=== PATIENT | female | born 1955 | race Caucasian/White ===

== ENCOUNTER → 2016-07-01 | Outpatient (CLI) | payer OTHER ==
[~2016-07-01] MED LIST: CALC1CAP36 PO; CALCTAB7 PO; HYDR-5688 PO; METH10TA6 PO; SYN125 PO; THY30 PO
== END | disposition home or self-care (01) ==
LOC: C.LAB 07:06
PROVIDERS: ATTEND Internal Medicine Endocrinology, Diabetes & Metabolism
DX: E05.00 Thyrotoxicosis with diffuse goiter without thyrotoxic crisis or storm (principal); E89.0 Postprocedural hypothyroidism

== ENCOUNTER → 2016-10-28 | Outpatient (CLI) | payer OTHER | END | disposition home or self-care (01) | LOC: C.LAB 06:44 | PROVIDERS: ATTEND Internal Medicine Endocrinology, Diabetes & Metabolism | DX: E05.00 Thyrotoxicosis with diffuse goiter without thyrotoxic crisis or storm (principal) ==

== ENCOUNTER 2016-11-02 15:20 | Emergency (ER) | payer OTHER ==
[~2016-11-02] VITALS: Ht 157.5 cm; Wt 53.6 kg
[~2016-11-02 15:20] MED LIST changes: -THY30 PO
[2016-11-02 15:34] VITALS: TEMP 36.8; Ht 157.5 cm; Wt 53.6 kg
[2016-11-02] MEDS ORDERED: THY30 PO (15:51)
--- NOTE | 2016-11-02 16:24 | DIAGNOSTIC IMAGING REPORT ---
LEFT FOOT MIN 3 VIEWS ROUTINE CLINICAL HISTORY: left foot pain, base of 2, 3 digits COMPARISON: None. DISCUSSION: The bones and joint spaces appear intact. There is no evidence of fracture, dislocation or bony disease. Mild degenerative change. Bunion deformity distal first metatarsal. IMPRESSION: No acute bony abnormality. Electronically signed by: Luc Cain M.D. 11/02/2016 4:22 PM Dictated Date/Time: 11/02/2016 4:22 PM
--- NOTE | 2016-11-02 16:35 | EMERGENCY ROOM VISIT NOTE ---
ED Visit Note First contact with patient: 15:38 CHIEF COMPLAINT: "My left foot is killing me" HISTORY OF PRESENT ILLNESS: This 60-year-old female patient presents to the emergency department ambulatory complaining of one and a half months history of pain in the left foot at rest and worse with weight bearing. The patient denies injury, but states the pain is getting worse. 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 She denies prior injury or fracture to this foot or ankle. Patient denies swelling , and states she tried taking one Tylenol at one point for the discomfort, without relief. Patient states she does not want to take pain medication in the discomfort, so she does not overdo it. The patient rates the pain as sharp and burning and 8/10 when walking, and throbbing and 3/10 at rest. Rest makes the pain better, movement and weightbearing makes it worse. The patient is able to walk. No numbness or weakness. No ankle pain. There are no lacerations of the foot. The patient is able to move all of their toes and their ankle without pain. Patient denies fever, chills, nausea, vomiting, redness, swelling , other associated symptoms. REVIEW OF SYSTEMS: GENERAL: A 6 system review of systems was completed with positives and pertinent negatives in the HPI. ALLERGIES: Dilaudid, codeine, IV contrast. MEDICATIONS: [place] Thyroid PMH: Hypothyroidism SOCIAL HISTORY: Lives locally with her family. She denies tobacco and drug use , but does admit to occasional wine during holidays. PHYSICAL EXAM: Vital Signs: Reviewed Nurse's notes, vital signs stable. GENERAL : 60-year-old female, in no acute distress, but appears in pain, well-developed , well-nourished. MUSCULOSKELATAL: There is no visual deformity of the left foot. There is no erythema or ecchymosis. There is no warmth. There is tenderness and swelling over the distal aspect of the second and third digits of the left foot. There is no tenderness over the lateral or medial malleolus. No tenderness of the tib/fib. The range of motion of the left foot, ankle, toes is not limited. There is no tenderness over the plantar fascia. The skin is intact and there are no lacerations or puncture wounds. Dorsalis pedis pulse 2+. Capillary refill less than 2 seconds. EMERGENCY DEPARTMENT COURSE: I examined the patient. Patient refuses pain medication at this time. An X-ray of the left foot was reviewed by myself and radiologist and reveals DISCUSSION: The bones and joint spaces appear intact. There is no evidence of fracture, dislocation or bony disease. Mild degenerative change. Bunion deformity distal first metatarsal. IMPRESSION: No acute bony abnormality. The patient was placed in a post op shoe but declines crutches. The patient was discharged home in good condition. DIAGNOSIS: Foot pain DIFFERENTIAL DIAGNOSIS: Fracture of the phalanges, metatarsal fracture, contusion of bone, ligamentous injury including sprain and strain, soft tissue contusion. TREATMENT: Ice and elevation for 24-48 hrs. Ibuprofen, 600mg and Tylenol 1000 mg every 6 hours for the pain. Avoid weight bearing and use post-op shoe until the pain subsides and you can walk without a limp. Follow up with family doctor or orthopedic surgeon in 3-7 days. Current/Historical Medications Scheduled Thyroid ([place] Thyroid), 75 MG PO DAILY Allergies Coded Allergies: Iodinated Diagnostic Agents (Unverified Allergy, Unknown, SNEEZING, 11/02/16 ) Codeine (Unverified Adverse Reaction, Intermediate, HEADACHE, SHAKINESS, N /V, 11/02/16) Hydromorphone (Unverified Adverse Reaction, Unknown, n/v, 11/02/16) Vital Signs Date Time Temp Pulse Resp B/P (MAP) Pulse Ox O2 Delivery O2 Flow Rate FiO2 11/02/16 15:34 36.8 73 16 106/72 100 Room Air Departure Information Impression Primary Impression: Foot pain Dispostion Home / Self-Care Condition GOOD Referrals Leatha Shaffer DO (PCP) Patient Instructions [facility] Additional Instructions ORTHOPEDIC INSTRUCTIONS: Ibuprofen(Motrin, Advil) may be used for fever or pain. Use 600mg every six hours as needed. Take with food. Avoid using more than 2400mg in a 24 hour period. Do not use 2400mg per day for more than three consecutive days without physician direction. Prolonged inappropriate use can lead to stomach upset or ulcers. (AND/OR) Acetaminophen(Tylenol) may be used for fever or pain. Use 1000mg every six hours as needed. Avoid using more than 4000mg in a 24 hour period. Ice compresses for 20 minutes at a time four times daily for 2-3 days. Please wear the postop shoe until follow-up with your family doctor or orthopedic surgeon. Rest and elevate your injury. Do not get the post-op shoe wet. If your splint feels excessively tight, you have worsening pain, develop numbness or tingling, or your digits appear blue, loosen the shoe. If your symptoms are not quickly relieved return to the ER for re-evaluation. Return to the ER immediately for any numbness, tingling, severe pain, extreme swelling in the extremity or as needed. Call [facility], [phone], in 2-3 days to arrange follow up for your injury. Follow-up with your primary care physician in 2 to 3 days for a recheck of your current condition. Problem Qualifiers Primary Impression: Foot pain Laterality: left Qualified Codes: M79.672 - Pain in left foot
[2016-11-02 16:48] VITALS: BP 98/69; PULSE 76; O2SAT 98
== END 2016-11-02 16:50 | disposition home or self-care (01) ==
LOC: C.EDB 15:22 → C.EDD 16:50
DX: M79.672 Pain in left foot (principal); E03.9 Hypothyroidism, unspecified; Z79.899 Other long term (current) drug therapy; Z88.5 Allergy status to narcotic agent; Z88.8 Allergy status to other drugs, medicaments and biological substances; Z91.041 Radiographic dye allergy status

== ENCOUNTER 2017-07-17 12:10 | Emergency (ER) | payer OTHER ==
[~2017-07-17] VITALS: Ht 157.5 cm; Wt 53.1 kg
[~2017-07-17 12:10] MED LIST changes: -CALC1CAP36 PO; -CALCTAB7 PO; -HYDR-5688 PO; -METH10TA6 PO; -SYN125 PO; +THY30 PO
[2017-07-17 12:22] VITALS: TEMP 36.5; Ht 157.5 cm; Wt 53.1 kg
[2017-07-17] MEDS ORDERED: SODIUM CHLORIDE 0.9% 500ML 500 ML IV STA ×2 (12:39→14:49)
[2017-07-17] MEDS ORDERED: METOCLOPRAMIDE HCL INJ 5 MG/ML 2 ML VIAL IV STA (12:39)
--- NOTE | 2017-07-17 12:43 | EMERGENCY ROOM VISIT NOTE ---
History Report prepared by Eduard: Jose Welch Under the Supervision of: Dr. Moy Deleon M.D. First contact with patient: 12:31 Chief Complaint: FLANK PAIN Stated Complaint: PAIN IN LEFT SIDE History of Present Illness The patient is a 61 year old female who presents to the Emergency Room with complaints of persistent left-sided abdominal pain that started a week ago. She says that her abdomen is also distended. The patient notes that she often has bowel movement issues, but currently her stools are all diarrhea. She adds that she has been nauseous. The patient notes an extensive surgical history, including a cholecystectomy, appendectomy, hysterectomy, and hernia. Source of History: patient Onset: A week ago Position: abdomen (left) Timing: other (persistent) Associated Symptoms: + nausea, + diarrhea Note: Associated symptoms: Abdominal distension. Review of Systems See HPI for pertinent positives & negatives. A total of 10 systems reviewed and were otherwise negative. Past Medical & Surgical Medical Problems: (1) Bronchitis (2) Graves disease (3) No chronic diseases present (4) PNA (pneumonia) Surgical Problems: (1) History of hysterectomy (2) History of thyroidectomy (3) Hx of appendectomy (4) Hx of thyroidectomy Family History Cancer Gallbladder disease Kidney disease Social History Smoking Status: Current Every Day Smoker Alcohol Use: none Housing Status: lives with roommate Occupation Status: employed Current/Historical Medications Scheduled Thyroid ([place] Thyroid), 75 MG PO DAILY Allergies Coded Allergies: Iodinated Diagnostic Agents (Unverified Allergy, Unknown, SNEEZING, ) Codeine (Unverified Adverse Reaction, Intermediate, HEADACHE, SHAKINESS, N /V, 07/17/17) Hydromorphone (Unverified Adverse Reaction, Unknown, n/v, 07/17/17) Physical Exam Vital Signs Date Time Temp Pulse Resp B/P (MAP) Pulse Ox O2 Delivery O2 Flow Rate FiO2 07/17/17 15:16 68 16 98/57 95 Room Air 07/17/17 14:26 60 18 82/53 98 Room Air 07/17/17 12:22 36.5 76 16 97/67 97 Room Air Physical Exam GENERAL: Patient is a healthy-appearing well-nourished 61 year old female. HEAD: Normocephalic atraumatic EYES: Ocular movements intact pupils equal and react to light OROPHARYNX mucous membranes are moist no exudates present no erythema or edema present NECK: Supple no nuchal rigidity CHEST: Good equal expansion LUNGS: Clear and equal to auscultation CARDIAC: Normal S1 and S2 ABDOMEN: Abdomen is distended and tender especially in the left upper quadrant. BACK: No CVA tenderness EXTREMITIES: No pain upon palpation normal muscle strength in all groups no clubbing cyanosis or edema NEURO: Patient is following commands and answering questions appropriately. Alert and oriented x3 Cranial Nerves 2-12 grossly intact Medical Decision & Procedures ER Provider Diagnostic Interpretation: ABDOMEN AND PELVIS CT WITH ORAL CONTRAST CT DOSE: 244.02 mGy.cm HISTORY: Pt c/o left sided abd pain TECHNIQUE: Multiaxial CT images of the abdomen and pelvis were performed following the use of oral contrast. A dose lowering technique was utilized adhering to the principles of ALARA. COMPARISON STUDY: None. FINDINGS: Linear densities at the right lung base consistent with subsegmental atelectasis. No fractures within the visualized osseous structures. Cholecystectomy. The unenhanced liver, spleen, adrenal glands, and kidneys are unremarkable. No renal or ureteral stones. No hydronephrosis. No retroperitoneal lymphadenopathy. Normal caliber common bile duct. There is a 1.3 cm hypodense lesion within the pancreatic head. This favors a cystic lesion. The bladder is unremarkable. The uterus is surgically absent. Colonic diverticulosis. The appendix is not identified and likely surgically absent. No bowel wall thickening or obstruction. IMPRESSION: 1. No bowel wall thickening or obstruction. 2. Colonic diverticulosis. 3. The appendix is likely surgically absent. 4. No renal stones or hydronephrosis. 5. A 1.3 cm hypodense lesion within the pancreatic head. This favors a cystic neoplasm such as a side branch intraductal papillary mucinous neoplasm or serous cystadenoma. Follow-up nonemergent GI consultation and follow-up nonemergent dedicated pancreatic MRI is recommended for confirmation. Electronically signed by: Willie Barragan M.D. 07/17/2017 3:20 PM Dictated Date/Time: 07/17/2017 3:13 PM Laboratory Results 07/17/17 12:45 Red Blood Count 5.19, Mean Corpuscular Volume 94.2, Mean Corpuscular Hemoglobin 33.5, Mean Corpuscular Hemoglobin Concent 35.6, Mean Platelet Volume 9.8, Neutrophils (%) (Auto) 42.3, Lymphocytes (%) (Auto) 48.6, Monocytes (%) (Auto) 7.5, Eosinophils (%) (Auto) 0.8, Basophils (%) (Auto) 0.7, Neutrophils # (Auto) 2.99, Lymphocytes # (Auto) 3.44, Monocytes # (Auto) 0.53, Eosinophils # (Auto) 0.06, Basophils # (Auto) 0.05 07/17/17 12:45 Test 07/17/17 12:45 White Blood Count 7.08 K/uL (4.8-10.8) Red Blood Count 5.19 M/uL (4.2-5.4) Hemoglobin 17.4 g/dL (12.0-16.0) Hematocrit 48.9 % (37-47) Mean Corpuscular Volume 94.2 fL (80-100) Mean Corpuscular Hemoglobin 33.5 pg (25-34) Mean Corpuscular Hemoglobin Concent 35.6 g/dl (32-36) Platelet Count 249 K/uL (130-400) Mean Platelet Volume 9.8 fL (7.4-10.4) Neutrophils (%) (Auto) 42.3 % Lymphocytes (%) (Auto) 48.6 % Monocytes (%) (Auto) 7.5 % Eosinophils (%) (Auto) 0.8 % Basophils (%) (Auto) 0.7 % Neutrophils # (Auto) 2.99 K/uL (1.4-6.5) Lymphocytes # (Auto) 3.44 K/uL (1.2-3.4) Monocytes # (Auto) 0.53 K/uL (0.11-0.59) Eosinophils # (Auto) 0.06 K/uL (0-0.5) Basophils # (Auto) 0.05 K/uL (0-0.2) RDW Standard Deviation 44.8 fL (36.4-46.3) RDW Coefficient of Variation 12.9 % (11.5-14.5) Immature Granulocyte % (Auto) 0.1 % Immature Granulocyte # (Auto) 0.01 K/uL (0.00-0.02) Urine Color YELLOW Urine Appearance CLEAR (CLEAR) Urine pH 5.5 (4.5-7.5) Urine Specific [place] 1.018 (1.000-1.030) Urine Protein NEG (NEG) Urine Glucose (UA) NEG (NEG) Urine Ketones TRACE (NEG) Urine Occult Blood NEG (NEG) Urine Nitrite NEG (NEG) Urine Bilirubin NEG (NEG) Urine Urobilinogen NEG (NEG) Urine Leukocyte Esterase NEG (NEG) Anion Gap 7.0 mmol/L (3-11) Est Creatinine Clear Calc Drug Dose 70.5 ml/min Estimated GFR () 111.0 Estimated GFR (Non- 95.7 BUN/Creatinine Ratio 17.8 (10-20) Calcium Level 9.0 mg/dl (8.5-10.1) Total Bilirubin 0.4 mg/dl (0.2-1) Direct Bilirubin mg/dl (0-0.2) Aspartate Amino Transf (AST/SGOT) 21 U/L (15-37) Alanine Aminotransferase (ALT/SGPT) 35 U/L (12-78) Alkaline Phosphatase 85 U/L (45-117) Total Protein 6.9 gm/dl (6.4-8.2) Albumin 3.4 gm/dl (3.4-5.0) Lipase 562 U/L (73-393) Chemistry Specimen Hemolysis Labs reviewed by ED physician. Medications Administered Medications (Trade) Dose Ordered Sig/Nicole Route Start Time Stop Time Status Last Admin Dose Admin Sodium Chloride 500 ml @ 999 mls/hr Q31M STAT IV 07/17/17 12:39 07/17/17 13:09 DC 07/17/17 12:39 999 MLS/HR Metoclopramide HCl (Reglan Inj) 10 mg NOW STAT IV 07/17/17 12:39 07/17/17 12:41 DC 07/17/17 12:58 10 MG Sodium Chloride 500 ml @ 999 mls/hr Q31M STAT IV 07/17/17 14:49 07/17/17 15:19 DC 07/17/17 15:16 999 MLS/HR ED Course 1232: Past medical records reviewed. The patient was evaluated in room B7. A complete history and physical examination was performed. 1239: Ordered Reglan Inj 10 mg IV, NSS 500 ml @ 999 mls/hr IV. Medical Decision Differential diagnosis: Etiologies such as appendicitis, diverticulitis, PUD, biliary pathology, UTI, pancreatitis, obstruction, mesenteric ischemia, aortic pathology, infections, inflammatory bowel disease, renal colic, as well as others were entertained. This is a 61-year-old female who presents emergency department waning of left- sided abdominal pain. Based on my Findings he was sent for a CAT scan of the abdomen pelvis however is a normal CBC profile liver profile. Her lipase is slightly elevated however she is nontender on examination I feel she can safely discharged. CAT scan is concerning for pancreatic and stressed close follow-up with primary care physician as well as gastroenterology. Patient was in agreement with the treatment plan Medication Reconcilliation Current Medication List: was personally reviewed by me Blood Pressure Screening Patient's blood pressure: Normal blood pressure Impression Primary Impression: Left flank pain Scribe Attestation The scribe's documentation has been prepared under my direction and personally reviewed by me in its entirety. I confirm that the note above accurately reflects all work, treatment, procedures, and medical decision making performed by me. Departure Information Referrals Leatha Shaffer DO (PCP) Patient Instructions My [facility]
[2017-07-17 13:07] LABS: BASO % 0.7 %; BASO ABS # 0.05 K/uL (0-0.2); EOS % 0.8 %; EOS ABS # 0.06 K/uL (0-0.5); HEMATOCRIT 48.9 % (37-47); HEMOGLOBIN 17.4 g/dL (12.0-16.0); IG# 0.01 K/uL (0.00-0.02); LYMPH % 48.6 %; LYMPH ABS # 3.44 K/uL (1.2-3.4); MEAN CELL VOLUME 94.2 fL (80-100); MEAN CORPUSCULAR HEMOGLOBIN 33.5 pg (25-34); MEAN CORPUSCULAR HGB CONC 35.6 g/dl (32-36); MEAN PLATELET VOLUME 9.8 fL (7.4-10.4); MONO % 7.5 %; MONO ABS # 0.53 K/uL (0.11-0.59); NEUT % 42.3 %; NEUT ABS # 2.99 K/uL (1.4-6.5); PLATELET COUNT 249 K/uL (130-400); RED CELL DISTRIBUTION WIDTH CV 12.9 % (11.5-14.5); RED CELL DISTRIBUTION WIDTH SD 44.8 fL (36.4-46.3); WHITE BLOOD COUNT 7.08 K/uL (4.8-10.8)
[2017-07-17 13:19] LABS: ALBUMIN 3.4 gm/dl (3.4-5.0); CREATININE 0.68 mg/dl (0.60-1.20); POTASSIUM 4.1 mmol/L (3.5-5.1); TOTAL PROTEIN 6.9 gm/dl (6.4-8.2)
[2017-07-17 15:16] VITALS: BP 98/57; PULSE 68; O2SAT 95
--- NOTE | 2017-07-17 15:22 | DIAGNOSTIC IMAGING REPORT ---
ABDOMEN AND PELVIS CT WITH ORAL CONTRAST CT DOSE: 244.02 mGy.cm HISTORY: Pt c/o left sided abd pain TECHNIQUE: Multiaxial CT images of the abdomen and pelvis were performed following the use of oral contrast. A dose lowering technique was utilized adhering to the principles of ALARA. COMPARISON STUDY: None. FINDINGS: Linear densities at the right lung base consistent with subsegmental atelectasis. No fractures within the visualized osseous structures. Cholecystectomy. The unenhanced liver, spleen, adrenal glands, and kidneys are unremarkable. No renal or ureteral stones. No hydronephrosis. No retroperitoneal lymphadenopathy. Normal caliber common bile duct. There is a 1.3 cm hypodense lesion within the pancreatic head. This favors a cystic lesion. The bladder is unremarkable. The uterus is surgically absent. Colonic diverticulosis. The appendix is not identified and likely surgically absent. No bowel wall thickening or obstruction. IMPRESSION: 1. No bowel wall thickening or obstruction. 2. Colonic diverticulosis. 3. The appendix is likely surgically absent. 4. No renal stones or hydronephrosis. 5. A 1.3 cm hypodense lesion within the pancreatic head. This favors a cystic neoplasm such as a side branch intraductal papillary mucinous neoplasm or serous cystadenoma. Follow-up nonemergent GI consultation and follow-up nonemergent dedicated pancreatic MRI is recommended for confirmation. Electronically signed by: Willie Barragan M.D. 07/17/2017 3:20 PM Dictated Date/Time: 07/17/2017 3:13 PM
[2017-07-21] MEDS ORDERED: VNTHFA/IN INH (15:26)
== END 2017-07-17 15:42 | disposition home or self-care (01) ==
LOC: C.EDB 12:11
DX: R10.9 Unspecified abdominal pain (principal); R19.7 Diarrhea, unspecified; E89.0 Postprocedural hypothyroidism; F17.200 Nicotine dependence, unspecified, uncomplicated; Z90.710 Acquired absence of both cervix and uterus; Z90.49 Acquired absence of other specified parts of digestive tract; Z90.89 Acquired absence of other organs; Z87.01 Personal history of pneumonia (recurrent); E05.00 Thyrotoxicosis with diffuse goiter without thyrotoxic crisis or storm

== ENCOUNTER → 2017-07-19 | Outpatient (CLI) | payer OTHER ==
[~2017-07-19] MED LIST changes: +VNTHFA/IN INH
[2017-07-19 17:27] LABS: HEMATOCRIT 44.1 % (37-47); HEMOGLOBIN 15.2 g/dL (12.0-16.0); MEAN CELL VOLUME 95.5 fL (80-100); MEAN CORPUSCULAR HEMOGLOBIN 32.9 pg (25-34); MEAN CORPUSCULAR HGB CONC 34.5 g/dl (32-36); MEAN PLATELET VOLUME 10.2 fL (7.4-10.4); PLATELET COUNT 248 K/uL (130-400); RED CELL DISTRIBUTION WIDTH CV 13.1 % (11.5-14.5); RED CELL DISTRIBUTION WIDTH SD 45.4 fL (36.4-46.3); WHITE BLOOD COUNT 7.01 K/uL (4.8-10.8)
[2017-07-19 17:53] LABS: BASO % 0.4 %; BASO ABS # 0.03 K/uL (0-0.2); EOS % 1.3 %; EOS ABS # 0.09 K/uL (0-0.5); IG# 0.01 K/uL (0.00-0.02); LYMPH % 53.5 %; LYMPH ABS # 3.75 K/uL (1.2-3.4); MONO % 7.6 %; MONO ABS # 0.53 K/uL (0.11-0.59); NEUT % 37.1 %
[2017-07-19 18:02] LABS: ALBUMIN 3.3 gm/dl (3.4-5.0); ALT/SGPT 37 U/L (12-78); AST/SGOT 18 U/L (15-37); BLOOD UREA NITROGEN 18 mg/dl (7-18); CALCIUM 8.8 mg/dl (8.5-10.1); CARBON DIOXIDE 26 mmol/L (21-32); CREATININE 0.54 mg/dl (0.60-1.20); GLUCOSE 91 mg/dl (70-99); LIPASE 182 U/L (73-393); POTASSIUM 3.8 mmol/L (3.5-5.1); SODIUM 141 mmol/L (136-145)
[2017-07-19 18:04] LABS: ALKALINE PHOSPHATASE 88 U/L (45-117); TOTAL PROTEIN 6.5 gm/dl (6.4-8.2)
== END | disposition home or self-care (01) ==
LOC: C.LAB 16:24
PROVIDERS: ATTEND Registered Nurse
DX: K86.2 Cyst of pancreas (principal)

== ENCOUNTER 2017-07-26 12:37 | Emergency (ER) | payer OTHER ==
[~2017-07-26] VITALS: Ht 157.5 cm; Wt 52.0 kg
[~2017-07-26 12:37] MED LIST changes: -GADAVIST IV PRN; -PRED50TA PO
[2017-07-26 12:43] VITALS: TEMP 36.7; Ht 157.5 cm; Wt 52.0 kg
[2017-07-26 13:15] VITALS: O2SAT 97
--- NOTE | 2017-07-26 13:32 | EMERGENCY ROOM VISIT NOTE ---
History Report prepared by Eduard: Adri Owusu Under the Supervision of: Dr. Erick López M.D. First contact with patient: 12:56 Chief Complaint: ALLERGIC REACTION Stated Complaint: HIVES Nursing Triage Summary: pt to the ED with c/o hives from MRI contrast to arms and chest and bilateral hands turned purple has had previous reaction to contrast and was pre medicated no resp complaints happened just prior to arrival to the ED History of Present Illness The patient is a 61 year old female who presents to the Emergency Room with complaints of an episode of an allergic reaction occurring [employer]. The patient had an outpatient MRI done this afternoon for a cyst on her pancreas. She reports that she had Solu-Medrol 12 hours before the study and then again 4 hours before the study. She was given contrast just prior to the MRI. The patient states that she developed a rash on her chest and bilateral arms and hands. She reports hives and states that she feels very itchy. She rates her pain as a 7/ 10 in severity. She denies any breathing issues or respiratory complaints. She states that her symptoms have already started to improve on their own. Source of History: patient Onset: [employer] INST[employer]ER Position: other (global) Symptom Intensity: 7/10 Quality: other (itchy) Timing: other (episode) Modifying Factors (Worsening): other (contrast dye) Modifying Factors (Relieving): other (time) Associated Symptoms: + rash, No SOB Review of Systems See HPI for pertinent positives & negatives. A total of 10 systems reviewed and were otherwise negative. Past Medical & Surgical Medical Problems: (1) Bronchitis (2) Graves disease (3) No chronic diseases present (4) PNA (pneumonia) Surgical Problems: (1) History of hysterectomy (2) History of thyroidectomy (3) Hx of appendectomy (4) Hx of thyroidectomy Family History Cancer Gallbladder disease Kidney disease Social History Smoking Status: Current Every Day Smoker Alcohol Use: none Housing Status: lives with roommate Occupation Status: employed Current/Historical Medications Scheduled Prednisone (Prednisone), 50 MG PO DAILY Thyroid ([place] Thyroid), 75 MG PO QAM Scheduled PRN Albuterol Hfa (Ventolin Hfa), 2-4 PUFFS INH Q6H PRN for SOB/Wheezing Allergies Coded Allergies: Gadobutrol (Unverified Allergy, Mild, RASH, 07/26/17) Iodinated Diagnostic Agents (Unverified Allergy, Unknown, SNEEZING, ) Codeine (Unverified Adverse Reaction, Intermediate, HEADACHE, SHAKINESS, N /V, 07/26/17) Hydromorphone (Unverified Adverse Reaction, Unknown, n/v, 07/26/17) Physical Exam Vital Signs Date Time Temp Pulse Resp B/P (MAP) Pulse Ox O2 Delivery O2 Flow Rate FiO2 07/26/17 14:10 83 18 111/68 96 Room Air 07/26/17 13:19 79 07/26/17 13:15 97 Room Air 07/26/17 12:43 36.7 84 18 106/73 97 Physical Exam GENERAL: Patient is in no acute distress. HEENT: No acute trauma, normocephalic atraumatic, mucous membranes moist, no nasal congestion, no scleral icterus. No uvular edema. NECK: No stridor, no adenopathy, no meningismus, trachea is midline. LUNGS: Clear to auscultation bilaterally, no wheeze, no rhonchi, breath sounds equal. HEART: Without murmurs gallops or rubs, regular rate and rhythm. ABDOMEN: Soft, nontender, bowel sounds positive, no hernias, no peritonitis. EXTREMITIES: No cyanosis or edema, full range of motion of all the joints without pain or difficulty, no signs for acute trauma. NEUROLOGIC: Oriented x 3, no acute motor or sensory deficits, no focal weakness. SKIN: A few scattered hives noted, they are slightly raised and erythematous and appear to be itchy Medical Decision & Procedures Medications Administered Medications (Trade) Dose Ordered Sig/Nicole Route Start Time Stop Time Status Last Admin Dose Admin Diphenhydramine HCl (Benadryl Cap) 50 mg NOW ONCE PO 07/26/17 13:00 07/26/17 13:01 DC 07/26/17 13:11 50 MG ED Course 1256: The patient was evaluated in room C11B. A complete history and physical exam was performed. 1300: Benadryl 50 mg PO 1411: I reassessed the patient at this time. She is feeling better and resting comfortably. I discussed the results and treatment plan with the patient. I answered all pertaining questions that she had. She expressed understanding and verbalized agreement. The patient will be discharged home. Medical Decision Differential diagnoses includes anaphylaxis, uvular edema, wheezing, hives, contrast allergy. Patient presents with itching and hives after MRI dye, she has had a previous reaction. She was premedicated with steroids but still had a reaction today. She has no difficulty with her breathing, no throat closing sensation. She does not feel herself wheezing. The patient received oral Benadryl, she was watched here for about an hour or so. Her hives resolved. No difficulty with her airway. She is being discharged. She will be on prednisone and Benadryl for the next few days, if worsening, she can return. Medication Reconcilliation Current Medication List: was personally reviewed by me Blood Pressure Screening Patient's blood pressure: Normal blood pressure Impression Primary Impression: Acute allergic reaction Additional Impression: Hives Scribe Attestation The scribe's documentation has been prepared under my direction and personally reviewed by me in its entirety. I confirm that the note above accurately reflects all work, treatment, procedures, and medical decision making performed by me. Departure Information Dispostion Home / Self-Care Prescriptions Prednisone (Prednisone) 50 Mg Tab 50 MG PO DAILY for 3 Days, #3 TAB Prov: Erick López M.D. 07/26/17 Referrals Leatha Shaffer DO (PCP) Forms HOME CARE DOCUMENTATION FORM, IMPORTANT VISIT INFORMATION Patient Instructions My [facility] Additional Instructions prednisone daily for 3 more days--next dose tomorrow benadryl 2 tab 3x per day for 3 days return for worsening symptoms Problem Qualifiers
[2017-07-26 14:10] VITALS: BP 111/68; PULSE 83; O2SAT 96
[2017-07-26] MEDS ORDERED: PRED50TA PO (14:15)
== END 2017-07-26 14:16 | disposition home or self-care (01) ==
LOC: C.EDB 12:38 → C.EDC 14:16
DX: L50.0 Allergic urticaria (principal); T50.8X5A Adverse effect of diagnostic agents, initial encounter; F17.200 Nicotine dependence, unspecified, uncomplicated; E05.00 Thyrotoxicosis with diffuse goiter without thyrotoxic crisis or storm; Z90.710 Acquired absence of both cervix and uterus; Z90.49 Acquired absence of other specified parts of digestive tract; Z87.01 Personal history of pneumonia (recurrent); Z83.79 Family history of other diseases of the digestive system; Z84.1 Family history of disorders of kidney and ureter; Z91.041 Radiographic dye allergy status; Z88.6 Allergy status to analgesic agent

== ENCOUNTER → 2017-07-26 | Outpatient (CLI) | payer OTHER ==
[~2017-07-26] MED LIST changes: +GADAVIST IV PRN; +PRED50TA PO
--- NOTE | 2017-07-26 12:55 | DIAGNOSTIC IMAGING REPORT ---
MRI ABDOMEN COMBO CLINICAL HISTORY: R74.8 Elevated [id number] cystic pancreatic mass TECHNIQUE: Imaging was performed prior to and following IV contrast injection. The patient was administered 5 cc of intravenous Gadavist COMPARISON STUDY: CAT scan dated July 17, 2017 FINDINGS: No hepatic masses are visualized. No splenic masses are visualized. The gallbladder surgically absent. No renal masses are visualized. There is no evidence of abdominal aortic dilatation. There is no ductal dilatation. No adrenal masses are visualized. There is a 14 mm cystic pancreatic head lesion. The lesion has characteristics suggesting a serous cystic neoplasm. Postcontrast images reveal minimal wall and septal enhancement. IMPRESSION: Loculated microcystic pancreatic head lesion, with imaging characteristics suggestive of a serous cystic neoplasm Electronically signed by: Morro Dexter M.D. 07/26/2017 12:54 PM Dictated Date/Time: 07/26/2017 12:43 PM
== END | disposition home or self-care (01) ==
LOC: C.MRI 11:34
PROVIDERS: ATTEND Registered Nurse
DX: K86.2 Cyst of pancreas (principal); R74.8 Abnormal levels of other serum enzymes

== ENCOUNTER → 2017-08-01 | Day surgery (SDC) | payer OTHER ==
[2017-07-21 15:24] VITALS: Ht 157.5 cm; Wt 53.6 kg
[~2017-08-01] VITALS: Ht 157.5 cm; Wt 53.6 kg
[~2017-08-01] MED LIST changes: +LIDOCAINE HCL 2% 2 ML VIAL (20MG/ML) ONE; +PROPOFOL IV EMULSION 10 MG/ML 20 ML VIAL IV ONE; +SODIUM CHLORIDE 0.9% 500ML 500 ML IV ONE
[2017-08-01 11:28] VITALS: TEMP 36.6
--- NOTE | 2017-08-01 12:20 | Endo History and Physical ---
History & Physical Date of Service: Aug 01, 2017. Chief Complaint: History of polyps Referring Physician: Dr. Leatha Shaffer History of Present Illness 61 yo CF who presents for colonoscopy secondary to history of colon polyps. Past Surgical History Hx Cardiac Surgery: No Hx Internal Defibrillator: No Hx Pacemaker: No Hx Abdominal Surgery: Yes (TUBAL LIGATION, FULL HYSTER, GEM, UMBILICAL HERNIA REPAIR) Hx of Implantable Prosthesis: No Hx Post-Op Nausea and Vomiting: Yes Hx Cancer Surgery: No Hx Thoracic Surgery: No Hx Orthopedic: No Hx Urinary Tract Surgery: No Family History IBD Social History Smoking Status: Current Every Day Smoker Hx Substance Use: No Hx Alcohol Use: No Allergies Coded Allergies: Gadobutrol (Verified Allergy, Mild, RASH, 08/01/17) Iodinated Diagnostic Agents (Verified Allergy, Unknown, SNEEZING, 08/01/17) Codeine (Verified Adverse Reaction, Intermediate, HEADACHE, SHAKINESS, N/V , 08/01/17) Hydromorphone (Verified Adverse Reaction, Unknown, n/v, 08/01/17) Current Medications Reported Home Medications Medications Dose Route/Sig Max Daily Dose Days Date Category Ventolin Hfa (Albuterol) 200 Puffs/82264 Mcg Aers 2-4 Puffs INH Q6H PRN 07/21/17 Reported [place] Thyroid (Thyroid) 30 Mg Tab 75 Mg PO QAM 11/02/16 Reported Vital Signs Weight (Kilograms): 53.64 Height (Feet): 5 Height (Inches): 2 Date Time Temp Pulse Resp B/P (MAP) Pulse Ox O2 Delivery O2 Flow Rate FiO2 08/01/17 11:28 36.6 88 20 120/76 (91) 96 Room Air Physical Exam General Appearance: WD/WN, no apparent distress Respiratory/Chest: Auscultation: breath sounds normal Cardiovascular: Heart Auscultation: RRR Abdomen: Bowel Sounds: normal Inspection & Palpation: soft, non-distended, no tenderness, guarding & rebound Assessment and Plan Assessment: 61 yo CF who presents for colonoscopy secondary to history of colon polyps. Plan: Proceed with colonoscopy.
--- NOTE | 2017-08-01 13:13 | Discharge Instructions ---
Endoscopy Patient Instructions Date / Procedure(s) Performed Aug 01, 2017. Colonoscopy Allergy Information Coded Allergies: Gadobutrol (Verified Allergy, Mild, RASH, 08/01/17) Iodinated Diagnostic Agents (Verified Allergy, Unknown, SNEEZING, 08/01/17) Codeine (Verified Adverse Reaction, Intermediate, HEADACHE, SHAKINESS, N/V , 08/01/17) Hydromorphone (Verified Adverse Reaction, Unknown, n/v, 08/01/17) Discharge Date / Findings Aug 01, 2017. Colon polyps Internal hemorrhoids Medication Instructions OK to resume all medications today as prescribed Reported Home Medications Medications Dose Route/Sig Max Daily Dose Days Date Category Ventolin Hfa (Albuterol) 200 Puffs/18589 Mcg Aers 2-4 Puffs INH Q6H PRN 07/21/17 Reported [place] Thyroid (Thyroid) 30 Mg Tab 75 Mg PO QAM 11/02/16 Reported Provider Instructions Activity Restrictions - No exercising or heavy lifting for 24 hours. - Do not drink alcohol the day of the procedure. - Do not drive a car or operate machinery until the day after the procedure. - Do not make any important decisions or sign important papers in 24 hours after the procedure. Following Day: - Return to full activity which may include returning to work/school. Diet Start your diet with liquids and light foods (jello, soup, juice, toast). Then eat your usual diet if not nauseated. Treatment For Common After Affects For mild abdominal pain, bloating, or excessive gas: - Rest - Eat lightly - Lie on right side Follow-Up Information Follow-up with Dr. Leatha Shaffer as scheduled Anesthesia Information What You Should Know You have had a procedure that required some medicine to reduce anxiety and discomfort. This treatment is called moderate sedation. After receiving the treatment, you may be sleepy, but you will be able to breathe on your own. The effects of the treatment may last for several hours. Follow these instructions along with Activity/Diet recommendations noted above: * Do NOT do anything where dizziness or clumsiness would be dangerous. * Rest quietly at home today, then you can be up and about tomorrow. * Have a responsible person stay with you the rest of today. * You may have had an I.V. today. If so, you may take the dressing off later today. Recommendations Call your doctor if: * Trouble breathing * Continuous vomiting for more than 24 hours * Temperature above 101 degrees * Severe abdominal pain or bloating * Pain not relieved by pain medicine ordered * There is increased drainage or redness from any incision * A large amount of rectal bleeding greater than 2-3 tablespoons. (If you had a polyp/s removed or have hemorrhoids, a small amount of blood - from the rectum is to be expected.) * You have any unanswered questions or concerns. IN THE EVENT OF A SERIOUS EMERGENCY, GO TO THE NEAREST EMERGENCY ROOM Your discharge instructions were prepared by provider Fran Baldwin. Patient Instructions Signature Page Tami Alvarado Patient (or Guardian) Signature/Date: I have read and understand the instructions given to me by my caregivers. Caregiver/RN/Doctor Signature/Date: The above-named patient and/or guardian has received patient instructions on this date. + Original Patient Signature Page (only) stays with chart. Please make copy for patient.
--- NOTE | 2017-08-01 13:21 | GI REPORT ---
Procedure Date: 08/01/2017 12:33 PM THIS REPORT HAS BEEN AMENDED Addendum Number: 1 Addendum Date: 08/01/2017 2:00:29 PM Indication for this procedure should read: History of colon polyps Procedure: Colonoscopy Indications: Change in bowel habits Medicines: Monitored Anesthesia Care Complications: No immediate complications. Estimated Blood Loss: Estimated blood loss: none. Procedure: Pre-Anesthesia Assessment: - Prior to the procedure, a History and Physical was performed, and patient medications and allergies were reviewed. The patient's tolerance of previous anesthesia was also reviewed. The risks and benefits of the procedure and the sedation options and risks were discussed with the patient. All questions were answered, and informed consent was obtained. Prior Anticoagulants: The patient has taken no previous anticoagulant or antiplatelet agents. ASA Grade Assessment: II - A patient with mild systemic disease. After reviewing the risks and benefits, the patient was deemed in satisfactory condition to undergo the procedure. After I obtained informed consent, the scope was passed under direct vision. Throughout the procedure, the patient's blood pressure, pulse, and oxygen saturations were monitored continuously. The scope was introduced through the anus and advanced to the terminal ileum. The colonoscopy was performed without difficulty. The patient tolerated the procedure well. The quality of the bowel preparation was good. The terminal ileum, ileocecal valve, appendiceal orifice, and rectum were photographed. Findings: The perianal and digital rectal examinations were normal. Two sessile polyps were found in the rectum and descending colon. The polyps were 6 to 8 mm in size. These polyps were removed with a hot snare. Resection and retrieval were complete. Non-bleeding internal hemorrhoids were found during retroflexion. The hemorrhoids were small. Impression: - Two 6 to 8 mm polyps in the rectum and in the descending colon, removed with a hot snare. Resected and retrieved. - Non-bleeding internal hemorrhoids. Recommendation: - Resume previous diet. - Continue present medications. - Repeat colonoscopy for surveillance based on pathology results. - Return to primary care physician as previously scheduled. Fran FelipeAriadna Baldwin DO 08/01/2017 1:20:38 PM This report has been signed electronically. Note Initiated On: 08/01/2017 12:33 PM I attest to the content of the Intraoperative Record and orders documented therein, exceptions below Fran Baldwin DO 08/01/2017 2:00:54 PM This report has been signed electronically.
[2017-08-01 13:34] VITALS: BP 110/76; PULSE 69; O2SAT 98
--- NOTE | 2017-08-01 13:57 | Anesthesiology Progress Note ---
Anesthesia Post Op Note Date & Time Aug 01, 2017 at 13:57 Vital Signs Pain Intensity: 0 Vital Signs Past 12 Hours Date Time Temp Pulse Resp B/P (MAP) Pulse Ox O2 Delivery O2 Flow Rate FiO2 08/01/17 13:34 69 16 110/76 (87) 98 Room Air 08/01/17 13:19 72 16 96/74 (81) 100 Room Air 08/01/17 13:04 75 16 109/70 (83) 96 Room Air 08/01/17 11:28 36.6 88 20 120/76 (91) 96 Room Air Notes Mental Status: alert / awake / arousable, participated in evaluation Pt Amnestic to Procedure: Yes Nausea / Vomiting: adequately controlled Pain: adequately controlled Airway Patency, RR, SpO2: stable & adequate BP & HR: stable & adequate Hydration State: stable & adequate Anesthetic Complications: no major complications apparent
== END | disposition home or self-care (01) ==
LOC: C.GI 11:12
PROVIDERS: ATTEND Internal Medicine
DX: Z12.11 Encounter for screening for malignant neoplasm of colon (principal); K62.1 Rectal polyp; K64.8 Other hemorrhoids; E03.9 Hypothyroidism, unspecified; F17.200 Nicotine dependence, unspecified, uncomplicated; K58.9 Irritable bowel syndrome, unspecified; Z86.010 Personal history of colon polyps; Z90.710 Acquired absence of both cervix and uterus; Z90.49 Acquired absence of other specified parts of digestive tract; Z88.5 Allergy status to narcotic agent; Z91.041 Radiographic dye allergy status; D12.4 Benign neoplasm of descending colon

== ENCOUNTER 2017-08-30 14:30 | Emergency (ER) | payer OTHER ==
[~2017-08-30] VITALS: Ht 157.5 cm; Wt 53.8 kg
[~2017-08-30 14:30] MED LIST changes: -LIDOCAINE HCL 2% 2 ML VIAL (20MG/ML) ONE; -PROPOFOL IV EMULSION 10 MG/ML 20 ML VIAL IV ONE; -SODIUM CHLORIDE 0.9% 500ML 500 ML IV ONE; -VNTHFA/IN INH
[2017-08-30 14:35] VITALS: TEMP 36.3; Ht 157.5 cm; Wt 53.8 kg
[2017-08-30] MEDS ORDERED: ARMOUR THYROID PO (15:14)
[2017-08-30] MEDS ORDERED: THYR15TA PO (15:14)
[2017-08-30] MEDS ORDERED: ACET-1693 PO (15:14)
[2017-08-30] MEDS ORDERED: VNTHFA/IN INH (15:26)
--- NOTE | 2017-08-30 15:46 | DIAGNOSTIC IMAGING REPORT ---
L-SPINE MIN 4 VIEWS ROUTINE CLINICAL HISTORY: Left lower back pain. COMPARISON: None FINDINGS: There is mild leftward curvature of the lumbar spine. Vertebral body heights are maintained. There is no fracture or suspicious lesion. Disc spaces are preserved. There is mild multilevel facet arthrosis. There is mild multilevel endplate osteophytosis. IMPRESSION: 1. No acute lumbar spine fracture or subluxation. 2. Mild levoscoliosis of the lumbar spine. 3. Mild multilevel degenerative disc disease and facet arthrosis of the lumbar spine. Electronically signed by: Kd Joseph M.D. 08/30/2017 3:44 PM Dictated Date/Time: 08/30/2017 3:43 PM
--- NOTE | 2017-08-30 15:57 | EMERGENCY ROOM VISIT NOTE ---
ED Visit Note First contact with patient: 14:43 CHIEF COMPLAINT: Low back pain HISTORY OF PRESENT ILLNESS: This 61-year-old female patient presents to the emergency department, ambulatory, complaining of pain in the left low back which began Tuesday morning. The pain was gradual in onset, is now constant and worse with movement. The patient does not recall any specific injury which precipitated the pain. The patient notes the pain as sharp and a 7/10. The patient has taken 1 dose of ibuprofen without relief of the pain. The pain radiates around toward the side/lateral abdomen, but does not radiate down the legs. The patient denies any loss of control of their bowel or bladder functions. There has been no leg numbness or weakness, and no change in sensation. No nausea or vomiting or abdominal pain. No chest pain or shortness of breath. The patient has not had prior back injuries. No dysuria or increased urinary frequency. No hematuria. The patient does not report a history of kidney stones, however her family members to have history of stones. The patient does report her pain improves while standing up, and worsens while sitting. REVIEW OF SYSTEMS: A 10 system review of systems was performed with positives and pertinent negatives listed in the history of present illness. All other systems were reviewed and are negative. ALLERGIES: Codeine, Dilaudid, iodine contrast MEDICATIONS: [place] Thyroid PMH: Pancreatic cyst, thyroidectomy SOCIAL HISTORY: The patient lives locally with family. She admits to smoking 5 cigarettes per day. She denies drug or alcohol use. PHYSICAL EXAM: VITALS: Vitals are noted on the nurse's note and reviewed by myself. Vital signs stable. GENERAL: This is a 61-year-old white female, in no acute distress, nondiaphoretic, well-developed well-nourished. SKIN: The skin was without rashes, erythema, edema, or bruising. Capillary refill less than 2 seconds. NECK: Supple without nuchal rigidity. No cervical spine tenderness. No paraspinous muscle tenderness. HEART: Regular rate and rhythm without murmurs gallops or rubs. LUNGS: Clear to auscultation bilaterally without wheezes, rales or rhonchi. ABDOMEN: Positive bowel sounds x 4. Normal tympanic percussion. Soft, nontender, without masses or organomegaly. Manuel sign negative. MUSCULOSKELETAL: No muscle atrophy, erythema, or edema noted of the back. There is no tenderness over the lumbar spinous processes. There is mild tenderness over the paraspinous muscles on the left. There is no tenderness over the thoracic spine or paraspinous muscles. There are no muscle spasms present. The patient is slow to move around with maximum tenderness with sitting from a lying position. Negative bilateral straight leg raise test. NEURO: Patient was alert and oriented to person place and time. Normal sensation to light and sharp touch. Deep tendon reflexes 2+ in the lower extremities. Dorsalis pedis pulse 2+ bilaterally. Strength 5/5 and equal in the bilateral lower extremities. RADIOLOGY: L-SPINE MIN 4 VIEWS ROUTINE CLINICAL HISTORY: Left lower back pain. COMPARISON: None FINDINGS: There is mild leftward curvature of the lumbar spine. Vertebral body heights are maintained. There is no fracture or suspicious lesion. Disc spaces are preserved. There is mild multilevel facet arthrosis. There is mild multilevel endplate osteophytosis. IMPRESSION: 1. No acute lumbar spine fracture or subluxation. 2. Mild levoscoliosis of the lumbar spine. 3. Mild multilevel degenerative disc disease and facet arthrosis of the lumbar spine. Electronically signed by: Kd Joseph M.D. 08/30/2017 3:44 PM Dictated Date/Time: 08/30/2017 3:43 PM EMERGENCY DEPARTMENT COURSE: The patient was seen and evaluated as above. She was offered analgesics and anti-inflammatory medications and declines. Urine dipstick was negative for hematuria, and there were no signs of infection. The patient does not have any tenderness in the abdomen, though her symptoms are suspicious for possible ureteral calculus. Lumbar spine x-ray was performed and reviewed by myself and radiologist as above. No acute findings noted. I discussed all findings with the patient at bedside. Patient was certainly encouraged to return immediately to the emergency department for any worsening symptoms. I did offer the patient pain medication, and she declines. Discharge instructions reviewed, the patient was discharged home in good condition. I attest that I have personally reviewed the patient's current medication list. Patient was found to have normal blood pressure on screening and does not require follow-up. Etiologies such as lumbago, sciatica, cauda equina, epidural abscess, osteomyelitis, fracture, aortic disease, metastatic disease, infection, renal colic, gastrointestinal, as well as others were entertained. DIAGNOSIS: Lumbar strain The chart was completed utilizing Dragon Speech voice recognition software. Grammatical errors, random word insertions, pronoun errors, and incomplete sentences are an occasional consequence of this system due to software limitations, ambient noise, and hardware issues. Any formal questions or concerns about the content, text, or information contained within the body of this dictation should be directly addressed to the provider for clarification. Problem List Medical Problems: (1) Bronchitis Status: Resolved (2) Graves disease Status: Chronic (3) No chronic diseases present Status: Chronic (4) PNA (pneumonia) Status: Resolved Surgical Problems: (1) History of hysterectomy Status: Resolved (2) History of thyroidectomy Status: Resolved (3) Hx of appendectomy Status: Resolved (4) Hx of thyroidectomy Status: Chronic Current/Historical Medications Scheduled Acetaminophen Tab (Tylenol), 650 MG PO PRN UD Thyroid ([place] Thyroid), 1 TAB PO DAILY [[place] Thyroid], 60 MG PO DAILY Scheduled PRN Albuterol Hfa (Ventolin Hfa), 2 PUFFS INH Q6H PRN for SOB/Wheezing Cyclobenzaprine Hcl (Flexeril), 5-10 MG PO TID PRN for Muscle Spasms Allergies Coded Allergies: Gadobutrol (Verified Allergy, Mild, RASH, 08/01/17) Iodinated Diagnostic Agents (Verified Allergy, Unknown, SNEEZING, 08/01/17) Codeine (Verified Adverse Reaction, Intermediate, HEADACHE, SHAKINESS, N/V , 08/01/17) Hydromorphone (Verified Adverse Reaction, Unknown, n/v, 08/01/17) Vital Signs Date Time Temp Pulse Resp B/P (MAP) Pulse Ox O2 Delivery O2 Flow Rate FiO2 08/30/17 16:13 84 20 108/69 100 08/30/17 14:35 36.3 88 20 107/72 99 Room Air Departure Information Impression Primary Impression: Strain of lumbar region Dispostion Home / Self-Care Condition GOOD Prescriptions Cyclobenzaprine Hcl (FLEXERIL) 5 Mg Tab 5-10 MG PO TID Y for Muscle Spasms, #15 TAB PRN Prov: Teresa Jeffrey, ADIA 08/30/17 Referrals Leatha Shaffer DO (PCP) Patient Instructions ED Exercises Lumbar Muscles, ED Sprain Strain Lumbar, My [facility] Additional Instructions You have been treated in the Emergency Department for Back Pain. There was no blood in your urine and no obvious kidney stone on X-ray. You have been prescribed Flexeril (cyclobenzaprine) 1-2 tabs orally, three times per day. Do NOT exceed 30 mg (6 tabs) per day. Take your first dose at bedtime as it can make you drowsy. Always take all medications as prescribed. For pain control, you can use the following [id number] medicines (if >12 yo): Ibuprofen(Motrin, Advil) may be used for fever or pain. Use 600mg every six hours as needed. Take with food. Avoid using more than 2400mg in a 24 hour period. Do not use 2400mg per day for more than three consecutive days without physician direction. Prolonged inappropriate use can lead to stomach upset or ulcers. (AND/OR) Acetaminophen(Tylenol) may be used for fever or pain. Use 1000mg every six hours as needed. Avoid using more than 3000mg in a 24 hour period. If this is an acute injury, ice can be applied to the area of pain for the first 3 days to help decrease pain and inflammation. After the first 3 days, a heating pad can be used over the area for continued soothing relief. You should schedule a follow-up appointment in 2-3 days with your Primary Care Provider for further evaluation and treatment of your back pain. Return to the Emergency Department if your current symptoms worsen despite treatment course outlined above, or if you develop any of the following symptoms : intractable pain despite aforementioned treatment course, loss of control of your bowel or bladder, numbness or tingling in your groin, or development of a fever. Problem Qualifiers Primary Impression: Strain of lumbar region Encounter type: initial encounter Qualified Codes: S39.012A - Strain of muscle, fascia and tendon of lower back, initial encounter
[2017-08-30] MEDS ORDERED: CYCL5TAB PO (16:06)
[2017-08-30 16:13] VITALS: BP 108/69; PULSE 84; O2SAT 100
== END 2017-08-30 16:15 | disposition home or self-care (01) ==
LOC: C.EDB 14:32 → C.EDD 16:15
DX: S39.012A Strain of muscle, fascia and tendon of lower back, initial encounter (principal); X58.XXXA Exposure to other specified factors, initial encounter; Y92.9 Unspecified place or not applicable; E05.00 Thyrotoxicosis with diffuse goiter without thyrotoxic crisis or storm; Z87.01 Personal history of pneumonia (recurrent); F17.210 Nicotine dependence, cigarettes, uncomplicated; Z79.899 Other long term (current) drug therapy; Z88.5 Allergy status to narcotic agent; Z91.041 Radiographic dye allergy status

== ENCOUNTER → 2017-12-26 | Outpatient (CLI) | payer OTHER ==
[~2017-12-26] MED LIST changes: +ACET-1693 PO; +ARMOUR THYROID PO; -THY30 PO; +THYR15TA PO; +VNTHFA/IN INH
== END | disposition home or self-care (01) ==
LOC: C.LAB 06:43
PROVIDERS: ATTEND Internal Medicine Endocrinology, Diabetes & Metabolism
DX: E89.0 Postprocedural hypothyroidism (principal)